=== PATIENT | male | born 1995 | race Caucasian/White ===

== ENCOUNTER 2017-03-12 18:56 | Emergency (ER) | payer SELFPAY ==
--- NOTE | 2017-03-12 19:44 | ED Physician Documentation ---
Wrist Injury - HISTORIAN Historian: patient - HPI Stated Complaint: Rt wrist pain Chief Complaint: Wrist Injury Additional Information: wrist got twisted at work trying to catch a [place] resident while she fell. Pain prox hand distal wrist. mostly with movement. Onset: today Where: work Severity: moderate Duration: persistent since Context: other (twist) Location of Injury: R wrist Modifying Factors: pain on movement Further Comments: no - ROS CONST: no problems GI/: denies: problems urinating NEURO: none CVS/RESP: none EYES/ENT: none MS/SKIN/LYMPH: none - PAST HX Past History: none Immunizations: UTD Allergies/Adverse Reactions: Allergies Allergy/AdvReac Type Severity Reaction Status Date / Time Sulfa (Sulfonamide Allergy Verified 03/12/17 19:30 Antibiotics) Home Medications: Ambulatory Orders Medication Instructions Recorded NK [NK] 03/12/17 - SOCIAL HX Smoking History: non-smoker Alcohol Use: none Drug Use: none - FAMILY HX Family History: none - VITAL SIGNS Vital Signs: Vital Signs Temp Pulse Resp BP Pulse Ox 71 16 126/84 98 03/12/17 18:56 03/12/17 18:56 03/12/17 18:56 03/12/17 18:56 - REVIEWED ASSESSMENTS Nursing Assessment Reviewed: Yes Vitals Reviewed: Yes Wrist Physical Exam - Physical Exam General Appearance: no acute distress, alert Hand: tenderness (prox hand dorsum) Wrist: soft tissue tenderness, tenderness (dorsum) Neuro: sensation nml, motor nml Vascular: no vascular compromise Tendon: tendon function nml Forearm/Elbow/Arm: uninjured above wrist Skin: warm/dry, normal color Head/ENT: nml inspection Neck/Back: nml inspection Resp/CVS: chest non-tender Abdomen: non-tender ED Results Lab/Radiology - Radiology Radiology Impressions: NAD - Orders Orders: ED Orders Category Date Time Status WRIST 3 VIEWS OR MORE [RAD] Stat Exams 03/12/17 19:33 Ordered Discharge Clincal Impression: Right wrist sprain Qualifiers: Encounter type: initial encounter Qualified Code(s): S63.501A - Unspecified sprain of right wrist, initial encounter Home Medications: Ambulatory Orders NK [NK] 03/12/17 Condition: Good Disposition: 01 HOME, SELF-CARE Decision to Admit: NO Date of Decison to Admit: 03/12/17 Decision Time: 20:00
[2017-03-12 20:55] VITALS: BP 124/67
--- NOTE | 2017-03-13 06:40 | Diagnostic Imaging Report ---
CLAUDIA GUPTA [facility] [id number] [facility], [facility] [address] [address] Report Submission Date: March 12, 2017 8:01:55 PM CDT Patient Study Name: SUNG ALTAMIRANO Date: March 12, 2017 7:42:41 PM CDT Modality Type: CR Gender: M Description: UPPER EXTREMITY : 89 Institution: [facility] Physician: CLAUDIA GUPTA Right wrist 3 views History: Pain after injury Findings: Right wrist is unremarkable without fracture, dislocation, arthropathy , or focal bone lesion. Electronically signed on March 12, 2017 8:01:55 PM CDT by: Sung HOPKINS
== END 2017-03-12 20:25 | disposition home or self-care (01) ==
LOC: ED 18:56
DX: S63.501A Unspecified sprain of right wrist, initial encounter (principal); W19.XXXA Unspecified fall, initial encounter; Y93.9 Activity, unspecified; Y99.9 Unspecified external cause status
CPT/HCPCS: 73110; 99283; L3908

== ENCOUNTER 2017-10-04 18:04 | Emergency (ER) | payer SELFPAY ==
[2017-10-04] MEDS ORDERED: HYDROcodone /APAP 5/325 1 EACH TABLET PO ONE (18:14)
[2017-10-04] MEDS ORDERED: CEPHALEXIN 250 MG CAPSULE PO ONE (18:14)
[2017-10-04 18:16] VITALS: BP 137/76
--- NOTE | 2017-10-04 18:20 | ED Physician Documentation ---
General Adult - HISTORIAN Historian: patient - HPI Stated Complaint: dental pain Chief Complaint: General Adult Onset: days ago (1) Timing: still present Severity: moderate Further Comments: yes (Pt is a 22 yo male with dental pain in an upper R molar. Pain x 1 day.) - ROS CONST: no problems EYES/ENT: other (dental pain) CVS/RESP: none GI/: none MS/SKIN/LYMPH: none - PAST HX Past History: none Allergies/Adverse Reactions: Allergies Allergy/AdvReac Type Severity Reaction Status Date / Time Sulfa (Sulfonamide Allergy Verified 10/04/17 18:11 Antibiotics) Home Medications: Ambulatory Orders Medication Instructions Recorded NK [NK] 03/12/17 - SOCIAL HX Smoking History: cigarettes - FAMILY HX Family History: No - VITAL SIGNS Vital Signs: Vital Signs Temp Pulse Resp BP Pulse Ox 98.4 F 98 H 19 137/76 98 10/04/17 18:04 10/04/17 18:04 10/04/17 18:04 10/04/17 18:04 10/04/17 18:04 - REVIEWED ASSESSMENTS Nursing Assessment Reviewed: Yes Vitals Reviewed: Yes Progress - Progress Progress: Rx Keflex 500 mg. Take one by mouth every 8 hrs for 10 days. Rx Marianna (5/325). Take one or two every 4 to 6 hrs as needed for moderate to severe pain. Disp: 15 ED Results Lab/Radiology - Orders Orders: ED Orders Category Date Time Status Cephalexin [Keflex] Med 10/04/17 18:14 Discontinued 500 mg PO NOW ONE HYDROcodone /APAP 5/325 [Marianna 5/325] Med 10/04/17 18:14 Discontinued 4 each PO NOW ONE General Adult Physical Exam - PHYSICAL EXAM GENERAL APPEARANCE: moderate distress EENT: other (dental tenderness, caries, R upper molar) NECK: normal inspection, supple RESPIRATORY: no resp distress, chest non-tender CVS: reg rate & rhythm, heart sounds normal BACK: normal inspection SKIN: warm/dry, normal color EXTREMITIES: non-tender, normal range of motion NEURO: oriented X3, motor nml, sensation nml Discharge Clincal Impression: dental pain Referrals: Casey Schofield MD [Primary Care Provider] - Condition: Good Disposition: 01 HOME, SELF-CARE Decision to Admit: NO Decision Time: 18:37
== END 2017-10-04 18:29 | disposition home or self-care (01) ==
LOC: ED 18:04
DX: K08.89 Other specified disorders of teeth and supporting structures (principal)
CPT/HCPCS: 99283; A9270-GY

== ENCOUNTER 2018-05-06 20:51 | Emergency (ER) | payer SELFPAY ==
[2018-05-06 21:13] VITALS: BP 146/100
--- NOTE | 2018-05-06 21:13 | ED Physician Documentation ---
General Adult - HPI Stated Complaint: STD Check (No sx's) Chief Complaint: General Adult Further Comments: yes (Left with out being seen) - ROS CONST: denies: no problems - PAST HX Past History: denies: none Allergies/Adverse Reactions: Allergies Allergy/AdvReac Type Severity Reaction Status Date / Time Sulfa (Sulfonamide Allergy Verified 10/04/17 18:11 Antibiotics) Home Medications: Ambulatory Orders Medication Instructions Recorded NK [NK] 03/12/17 - SOCIAL HX Smoking History: cigarettes - FAMILY HX Family History: No - VITAL SIGNS Vital Signs: Vital Signs Temp Pulse Resp BP Pulse Ox 97.6 F 109 H 18 146/100 98 05/06/18 20:55 05/06/18 20:55 05/06/18 20:55 05/06/18 20:55 05/06/18 20:55 General Adult Physical Exam - PHYSICAL EXAM GENERAL APPEARANCE: no distress NEURO: oriented X3 Discharge Clincal Impression: Patient left without being seen Referrals: Casey Schofield MD [Primary Care Provider] - 2 Days Condition: Stable Disposition: 01 HOME, SELF-CARE Decision to Admit: NO Decision Time: 21:13
== END 2018-05-06 21:14 | disposition left against medical advice (07) ==
LOC: ED 20:51
DX: Z53.9 Procedure and treatment not carried out, unspecified reason (principal)
CPT/HCPCS: 99281